=== PATIENT | male | born 1965 ===

== ENCOUNTER 2019-02-26 20:55 | Emergency (ER) | payer SELFPAY ==
[~2019-02-26] VITALS: Ht 193 cm; Wt 86.2 kg
--- NOTE | 2019-02-26 21:01 | ED Lower Extremity ---
General Stated Complaint: LAC TO RIGHT LEG Source: patient History of Present Illness Date Seen by Provider: Feb 26, 2019 Time Seen by Provider: 21:01 Initial Comments 53-year-old male presents with laceration to his right leg. 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 He states that his last tetanus shot was 3-4 years ago. He was having difficulty trying to get the bleeding stopped at home so he finally came into the ER. He has no numbness or tingling in his leg. He has no weakness in the right leg either. Allergies and Home Medications Allergies Coded Allergies: No Known Allergies (Verified Allergy, Unknown, 02/26/19) Patient Home Medication List Home Medication List Reviewed: Yes Review of Systems Constitutional: no symptoms reported EENTM: no symptoms reported Respiratory: no symptoms reported Cardiovascular: no symptoms reported Gastrointestinal: no symptoms reported Genitourinary: no symptoms reported Musculoskeletal: see HPI, other (pain at site of his laceration on right leg) Skin: see HPI, other (laceration to right leg just proximal to his right knee) Psychiatric/Neurological: Denies Numbness, Denies Paresthesia, Denies Tingling, Denies Weakness Past Esivkcq-Wwigha-Sstrhb Hx Past Med/Social Hx: Reviewed Nursing Past Med/Soc Hx Patient Social History Recent Foreign Travel: No Contact w/Someone Who Travel: No Physical Exam Vital Signs Vital Signs - First Documented 02/26/19 02/26/19 21:09 22:29 Pulse 87 Resp 18 B/P (MAP) 117/69 (85) Pulse Ox 99 O2 Delivery Room Air Capillary Refill : Height, Weight, BMI Height: '" Weight: lbs. oz. 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 nml as tested, no motor/sensory deficits, alert, normal mood/affect, oriented x 3 Skin: normal color, warm/dry, other (laceration to right leg just proximal to his knee) Procedures/Interventions Wound Location: Lower Extremities (right distal thigh) Wound Length (cm): 5.3 Wound's Depth, Shape: into muscle Wound Explored: clean Betadine Prep?: Yes Anesthesia: Lidocaine w/ Epi (10 ml) Volume Anesthetic (ccs): 10 Suture: Ethlion Suture Size: 4-0 Number of Sutures: 12 Layer Closure?: 2 Number Deep Layer Sutures: 3 Sterile Dressing Applied?: Yes Progress After obtaining verbal informed consent the wound was anesthetized with 2% lidocaine with epinephrine. Then cleaned with Betadine and sterile water. There were no foreign bodies found. Large blood clot was expressed from the wound and with pressures of bleeding was controlled. He did cut down into the muscle and was having continued oozing and bleeding from that. I placed 3 deep interrupted simple sutures with absorbable 4-0 Polysorb. Then using 4-0 Ethilon he had 12 stitches placed on the skin. He tolerated this well with no immediate complications. A pressure dressing was applied and patient was counseled on follow-up and return precautions. Advised to use ice and elevation as well as compression to help the bruising, bleeding, swelling to heal Progress/Results/Core Measures Results/Orders My Orders Orders - REYES SEWELL MD Lidocaine/Epi 2% 1:100,000 (Xylocaine/Ep (02/26/19 21:06) Lidocaine/Epi 2% 1:100,000 (Xylocaine/Ep (02/26/19 22:00) Medications Given in ED Current Medications Medications Dose Ordered Sig/Marquis Route Start Time Stop Time Status Last Admin Dose Admin Lidocaine/ Epinephrine 20 ml ONCE ONCE INJ 02/26/19 22:00 02/26/19 22:01 DC 02/26/19 21:15 20 ML Vital Signs/I&O 02/26/19 02/26/19 21:09 22:29 Pulse 87 81 Resp 18 17 B/P (MAP) 117/69 (85) 143/87 Pulse Ox 99 O2 Delivery Room Air Room Air Progress Progress Note : Progress Note After obtaining verbal informed consent the wound was anesthetized with 2% lidocaine with epinephrine. Then cleaned with Betadine and sterile water. There were no foreign bodies found. Large blood clot was expressed from the wound and with pressures of bleeding was controlled. He did cut down into the muscle and was having continued oozing and bleeding from that. I placed 3 deep interrupted simple sutures with absorbable 4-0 Polysorb. Then using 4-0 Ethilon he had 12 stitches placed on the skin. He tolerated this well with no immediate complications. A pressure dressing was applied and patient was counseled on follow-up and return precautions. Advised to use ice and elevation as well as compression to help the bruising, bleeding, swelling to heal Departure Impression Primary Impression: Laceration of right thigh Qualified Codes: S71.111A - Laceration without foreign body, right thigh, initial encounter Disposition: HOME, SELF-CARE Condition: Stable Departure-Patient Inst. Decision time for Depature: 22:11 Referrals: NO,LOCAL PHYSICIAN (PCP) Primary Care Physician [facility] Patient Instructions: Laceration Repair With Stitches (DC) Add. Discharge Instructions: Keep wound clean and dry for first 24 hours. Elevate your leg above waist level as much as possible in the next 48 hours. Apply ice 20-30 minutes every few hours in the first few days to help decrease swelling and pain. Remove the compression dressing after 24 hours. Then you may wash the wound with soap and water but do not soak it. Re-apply antibiotic ointment and a compression dressing that you can now change 2 times a day and as needed to help with swelling and bruising. Limit your activity for the next 2-3 days to let the wound start to heal. After that you could start going back to your normal activities but avoid doing anything strenuous with your right leg. Check with clinic in 10 to 14 days or return to ER for removal of stitches. You will still get bruising to your thigh and it may even extend down into your leg as the wound is trying to heal. REYES SEWELL MD Feb 26, 2019 21:01
[2019-02-26] MEDS ORDERED: LIDOCAINE/EPI 2% 1:100,00 (XYLOCAINE) 20 ML VIAL ONE (21:06)
[2019-02-26] MEDS ORDERED: LIDOCAINE/EPI 2% 1:100,00 (XYLOCAINE) 20 ML VIAL INJ ONE (22:00)
[2019-02-26 22:29] VITALS: BP 143/87
== END 2019-02-26 22:29 | disposition home or self-care (01) ==
LOC: ER FS 20:58 → MERGE 20:58 → ER FS 22:29
DX: S71.111A Laceration without foreign body, right thigh, initial encounter (principal); W26.8XXA Contact with other sharp object(s), not elsewhere classified, initial encounter
CPT/HCPCS: 99284